=== PATIENT | female | born 1985 | race African-American/Black ===

== ENCOUNTER 2017-12-10 08:25 | Emergency (ER) | payer OTHER ==
[~2017-12-10] VITALS: Ht 167.6 cm; Wt 85.3 kg
[2017-12-10] MEDS ORDERED: SODIUM CHLORIDE 0.9% 1,000 ML IV ONE (08:36)
[2017-12-10] MEDS ORDERED: KETOROLAC TROMETH 30 MG/ML 1ML VIAL IV ONE (08:45)
[2017-12-10 08:49] VITALS: BP 133/65
[2017-12-10 09:08] LABS: Eosinophils # (auto) 0 uL; Hemoglobin 11.9 g/dL (12.2-16.2); Lymphocytes # (auto) 0.9 uL; Monocytes # (auto) 0.2 uL; Nucleated Red Blood Cells % 0.2 %
[2017-12-10 09:10] LABS: Basophils # (auto) 0.1 uL; Eosinophils % (auto) 0.3 % (0.0-7.0); Hematocrit 37.6 % (36.0-46.0); Lymphocytes % (auto) 12.6 % (10.0-50.0); Mean Corpuscular Hemoglobin 24.1 pg (28.0-32.0); Mean Corpuscular Hgb Conc. 31.6 g/dL (32.0-36.0); Mean Corpuscular Volume 76.2 fL (80.0-100.0); Monocytes % (auto) 3.1 % (0.0-12.0); Neutrophils # (auto) 5.8 uL; Platelet Count (auto) 355 10^3/uL (140-450); Red Blood Cells 4.93 10^6/uL (4.0-5.20)
[2017-12-10] MEDS ORDERED: ONDANSETRON HCL 4 MG/2 ML VIAL IV ONE (09:15)
[2017-12-10 09:30] LABS: Albumin 4.1 g/dL (3.4-5.0); BUN/Creatinine Ratio 8.6; Bilirubin, Total 0.5 mg/dL (0.2-1.0); Calcium 9.4 mg/dL (8.5-10.1); Potassium 3.4 mmol/L (3.5-5.1)
[2017-12-10] MEDS ORDERED: PROMETHAZINE HCL 25 MG/ML 1ML IV ONE (09:30)
[2017-12-10 09:57] LABS: Alcohol, Urine < 3.0 mg/dL (0-5); Amphetamine Screen, Urine NEGATIVE (NEGATIVE); Barbiturate Scree,Urine NEGATIVE (NEGATIVE); Benzodiazephine Screen, Urine NEGATIVE (NEGATIVE); Cannabinoid Screen, Urine POSITIVE (NEGATIVE); Cocaine Screen, Urine NEGATIVE (NEGATIVE); Opiate Scree,Urine NEGATIVE (NEGATIVE); Phencyclidine Screen, Urine NEGATIVE (NEGATIVE)
[2017-12-10 09:59] LABS: Urine Specific Gravity 1.026 (1.001-1.035)
[2017-12-10 10:00] LABS: Urine Blood Normal /uL (Negative)
[2017-12-10] MEDS ORDERED: PANTOPRAZOLE 40 MG/10 ML VIAL IV ONE (10:00)
[2017-12-10 10:14] LABS: Urine WBC 1 /hpf (0 - 5)
[2017-12-10 10:15] LABS: Urine Bacteria FEW /hpf (None Seen); Urine Mucus MOD (None Seen)
== END 2017-12-10 11:26 | disposition home or self-care (01) ==
LOC: ER 08:25
DX: K29.70 Gastritis, unspecified, without bleeding (principal); F12.10 Cannabis abuse, uncomplicated
CPT/HCPCS: 36415; 80053; 80307; 81001; 82150; 83690; 85025; 96361; 96374; 96375; 99284; C9113; J1885; J2550; J7030

== ENCOUNTER 2017-12-13 03:45 | Emergency (ER) | payer OTHER ==
[~2017-12-13] VITALS: Ht 167.6 cm; Wt 90.7 kg
[2017-12-13 04:29] LABS: Basophils # (auto) 0 uL; Hemoglobin 11.6 g/dL (12.2-16.2); Monocytes # (auto) 0.5 uL; Neutrophils # (auto) 5.5 uL
[2017-12-13] MEDS ORDERED: SODIUM CHLORIDE 0.9% 1,000 ML IV ONE ×2 (04:30→11:30)
[2017-12-13] MEDS ORDERED: NALBUPHINE HCL 10 MG/1ml INJECTION IV ONE (04:30)
[2017-12-13] MEDS ORDERED: PROMETHAZINE HCL 25 MG/ML 1ML IV ONE (04:30)
[2017-12-13 04:33] LABS: Basophils % (auto) 0.4 % (0.0-2.0); Eosinophils # (auto) 0.2 uL; Lymphocytes % (auto) 24.5 % (10.0-50.0); Monocytes % (auto) 5.9 % (0.0-12.0); Neutrophils % (auto) 67.2 % (37.0-80.0); Nucleated Red Blood Cells % 0.2 %; White Blood Cell 8.2 10^3/uL (4.4-10.8)
[2017-12-13 04:34] LABS: Hematocrit 36.9 % (36.0-46.0); Mean Corpuscular Hgb Conc. 31.4 g/dL (32.0-36.0); Mean Corpuscular Volume 76.5 fL (80.0-100.0); Platelet Count (auto) 334 10^3/uL (140-450); Red Blood Cells 4.82 10^6/uL (4.0-5.20); Red Cell Distribution Width 16.6 % (11.8-14.3)
[2017-12-13 04:58] LABS: Albumin 3.8 g/dL (3.4-5.0); Bilirubin, Total 0.3 mg/dL (0.2-1.0); Calcium 8.8 mg/dL (8.5-10.1); Total Protein 7.1 g/dL (6.4-8.2)
[2017-12-13 05:04] LABS: Potassium 2.7 mmol/L (3.5-5.1)
[2017-12-13 05:45] LABS: Urine Bacteria FEW /hpf (None Seen); Urine Blood Negative /uL (Negative); Urine Mucus FEW (None Seen); Urine Specific Gravity 1.009 (1.001-1.035); Urine WBC 4 /hpf (0 - 5)
[2017-12-13] MEDS ORDERED: ONDANSETRON HCL 4 MG/2 ML VIAL IV ONE (07:00)
[2017-12-13 11:05] VITALS: BP 144/71
[2017-12-13] MEDS ORDERED: POTASSIUM CHL 10% (20 MEQ/15ML) 15ml ORAL SOLN PO ONE ×2 (11:15→11:30)
== END 2017-12-13 13:00 | disposition home or self-care (01) ==
LOC: EDBD 03:45 → ER 03:45
DX: N20.0 Calculus of kidney (principal); F12.10 Cannabis abuse, uncomplicated
CPT/HCPCS: 36415; 74176; 80053; 81001; 82150; 83690; 84702; 85025; 96361; 96374; 96375; 99285; J2300; J2550; J7030

== ENCOUNTER 2018-04-30 00:02 | Emergency (ER) | payer OTHER ==
[~2018-04-30] VITALS: Ht 167.6 cm; Wt 63.5 kg
[2018-04-30 00:35] LABS: Basophils # (auto) 0.1 uL; Eosinophils # (auto) 0 uL; Eosinophils % (auto) 0.6 % (0.0-7.0); Hemoglobin 10.8 g/dL (12.2-16.2); Lymphocytes # (auto) 1.2 uL; White Blood Cell 7.4 10^3/uL (4.4-10.8)
[2018-04-30 00:37] LABS: Basophils % (auto) 0.8 % (0.0-2.0); Hematocrit 34.6 % (36.0-46.0); Lymphocytes % (auto) 16.6 % (10.0-50.0); Mean Corpuscular Hemoglobin 23.6 pg (28.0-32.0); Mean Corpuscular Hgb Conc. 31.1 g/dL (32.0-36.0); Mean Corpuscular Volume 75.8 fL (80.0-100.0); Monocytes # (auto) 0.4 uL; Monocytes % (auto) 4.9 % (0.0-12.0); Neutrophils # (auto) 5.7 uL; Neutrophils % (auto) 77.1 % (37.0-80.0); Platelet Count (auto) 268 10^3/uL (140-450); Red Blood Cells 4.57 10^6/uL (4.0-5.20); Red Cell Distribution Width 17.2 % (11.8-14.3)
[2018-04-30 00:57] LABS: Albumin 3.6 g/dL (3.4-5.0); BUN/Creatinine Ratio 12.7; Calcium 8.3 mg/dL (8.5-10.1)
[2018-04-30 01:00] LABS: Bilirubin, Total 0.6 mg/dL (0.2-1.0); Total Protein 7.3 g/dL (6.4-8.2)
[2018-04-30] MEDS ORDERED: SODIUM CHLORIDE 0.9% 1,000 ML IV ONE ×2 (01:00→03:30)
[2018-04-30 02:36] LABS: Urine Bacteria FEW /hpf (None Seen); Urine Blood 3+ /uL (Negative); Urine Mucus FEW (None Seen); Urine WBC 9 /hpf (0 - 5)
[2018-04-30] MEDS ORDERED: ONDANSETRON HCL 4 MG/2 ML VIAL ONE (03:03)
[2018-04-30] MEDS ORDERED: HYDROmorphone HCL 2 MG/ML VL ONE (03:03)
[2018-04-30] MEDS ORDERED: HYDROmorphone HCL 2 MG/ML VL IV ONE ×2 (03:15→03:30)
[2018-04-30] MEDS ORDERED: ONDANSETRON HCL 4 MG/2 ML VIAL IV ONE (03:15)
[2018-04-30] MEDS ORDERED: PROMETHAZINE HCL 25 MG/ML 1ML IV ONE (03:30)
[2018-04-30 05:51] VITALS: BP 119/70
[2018-04-30] MEDS ORDERED: ONDANSETRON HCL 4 MG/2 ML VIAL IM ONE (06:15)
== END 2018-04-30 06:09 | disposition home or self-care (01) ==
LOC: EDBD 00:02 → ER 00:05
DX: K52.9 Noninfective gastroenteritis and colitis, unspecified (principal); N39.0 Urinary tract infection, site not specified; F17.210 Nicotine dependence, cigarettes, uncomplicated; F12.10 Cannabis abuse, uncomplicated
CPT/HCPCS: 36415; 74176; 80053; 81001; 82150; 83690; 85025; 96361; 96372; 96374; 96375; 99285; J1170; J2405

== ENCOUNTER 2018-06-03 02:42 | Emergency (ER) | payer OTHER ==
[~2018-06-03] VITALS: Ht 167.6 cm; Wt 81.6 kg
[2018-06-03] MEDS ORDERED: ONDANSETRON HCL 4 MG/2 ML VIAL IV ONE ×2 (03:00→07:45)
[2018-06-03] MEDS ORDERED: NALBUPHINE HCL 10 MG/1ml INJECTION IV ONE (03:00)
[2018-06-03] MEDS ORDERED: SODIUM CHLORIDE 0.9% 1,000 ML IV ONE (03:00)
[2018-06-03 03:33] LABS: Basophils # (auto) 0 uL; Eosinophils # (auto) 0.1 uL; Monocytes # (auto) 0.5 uL; Nucleated Red Blood Cells % 0.1 %; Red Cell Distribution Width 17.3 % (11.8-14.3); White Blood Cell 8.4 10^3/uL (4.4-10.8)
[2018-06-03 03:35] LABS: Basophils % (auto) 0.4 % (0.0-2.0); Eosinophils % (auto) 0.8 % (0.0-7.0); Hemoglobin 11.2 g/dL (12.2-16.2); Lymphocytes # (auto) 1.5 uL; Lymphocytes % (auto) 17.9 % (10.0-50.0); Mean Corpuscular Volume 74.1 fL (80.0-100.0); Monocytes % (auto) 6.3 % (0.0-12.0); Neutrophils # (auto) 6.3 uL; Neutrophils % (auto) 74.6 % (37.0-80.0); Platelet Count (auto) 322 10^3/uL (140-450); Red Blood Cells 4.86 10^6/uL (4.0-5.20)
[2018-06-03 03:53] LABS: Alanine Aminotransferase 15 U/L (13-56); Albumin 3.7 g/dL (3.4-5.0); Anion Gap 11 (5-15); Aspartate Aminotransferase 9 U/L (15-37); BUN/Creatinine Ratio 10.4; Blood Urea Nitrogen 8 mg/dL (7-18); Calcium 8.5 mg/dL (8.5-10.1); Carbon Dioxide 24 mmol/L (21-32); Chloride 104 mmol/L (98-107); GFR African American 112 mL/min; GFR Non-African American 92 mL/min; Glucose 107 mg/dL (74-106); Magnesium 1.9 mg/dL (1.6-2.6); Sodium 139 mmol/L (136-145)
[2018-06-03 03:58] LABS: Alkaline Phosphatase 86 U/L (45-117); Bilirubin, Total 0.6 mg/dL (0.2-1.0); Total Protein 7.3 g/dL (6.4-8.2)
[2018-06-03 04:34] LABS: Potassium 2.8 mmol/L (3.5-5.1)
[2018-06-03] MEDS ORDERED: POTASSIUM EFFERVESENT TAB 25 MEQ PO ONE (05:15)
[2018-06-03] MEDS ORDERED: POTASSIUM CHL 20MEQ/100ML 100 ML IV ONE (05:15)
[2018-06-03 08:17] VITALS: BP 118/77
== END 2018-06-03 08:49 | disposition home or self-care (01) ==
LOC: EDBD 02:42 → ER 02:42
DX: G43.A0 Cyclical vomiting, in migraine, not intractable (principal); F17.210 Nicotine dependence, cigarettes, uncomplicated; F12.10 Cannabis abuse, uncomplicated
CPT/HCPCS: 36415; 71045; 80053; 82150; 83690; 83735; 84484; 85025; 93005; 96361; 96374; 96375; 96376; 99285; J2300; J2405; J3480; J7030

== ENCOUNTER 2018-06-23 18:52 | Emergency (ER) | payer OTHER ==
[~2018-06-23] VITALS: Ht 172.7 cm; Wt 79.4 kg
[2018-06-23 19:38] LABS: Basophils # (auto) 0 uL; Eosinophils # (auto) 0.1 uL; Eosinophils % (auto) 0.9 % (0.0-7.0); Lymphocytes # (auto) 0.9 uL
[2018-06-23 19:41] LABS: Hemoglobin 10.7 g/dL (12.2-16.2); Lymphocytes % (auto) 13.2 % (10.0-50.0); Neutrophils # (auto) 5.2 uL; White Blood Cell 6.7 10^3/uL (4.4-10.8)
[2018-06-23 19:43] LABS: Basophils % (auto) 0.4 % (0.0-2.0); Hematocrit 34.6 % (36.0-46.0); Mean Corpuscular Hemoglobin 23.3 pg (28.0-32.0); Mean Corpuscular Volume 75.4 fL (80.0-100.0); Monocytes # (auto) 0.6 uL; Monocytes % (auto) 8.5 % (0.0-12.0); Platelet Count (auto) 261 10^3/uL (140-450); Red Blood Cells 4.59 10^6/uL (4.0-5.20); Red Cell Distribution Width 18.8 % (11.8-14.3)
[2018-06-23 19:57] LABS: Albumin 3.5 g/dL (3.4-5.0); BUN/Creatinine Ratio 7.6; Calcium 8.4 mg/dL (8.5-10.1)
[2018-06-23 20:14] LABS: Urine Bacteria FEW /hpf (None Seen); Urine Blood Negative /uL (Negative); Urine Mucus FEW (None Seen); Urine Specific Gravity 1.018 (1.001-1.035); Urine WBC 3 /hpf (0 - 5)
[2018-06-23] MEDS ORDERED: PROMETHAZINE HCL 25 MG/ML 1ML IV ONE (20:30)
[2018-06-23] MEDS ORDERED: ACETAMINOPHEN 500 MG TAB PO ONE (20:30)
[2018-06-23 20:38] LABS: Bilirubin, Total 0.4 mg/dL (0.2-1.0); Total Protein 7.1 g/dL (6.4-8.2)
[2018-06-23 20:41] LABS: Potassium 2.7 mmol/L (3.5-5.1)
[2018-06-23] MEDS ORDERED: POTASSIUM CHL 20 Meq TABLET PO ONE (21:00)
[2018-06-23] MEDS ORDERED: SODIUM CHLORIDE 0.9% 1,000 ML IV ONE (23:15)
[2018-06-23 23:30] VITALS: BP 126/82
== END 2018-06-24 00:23 | disposition home or self-care (01) ==
LOC: ER 18:52 → EDBD 18:52 → ER 23:45
DX: O99.611 Diseases of the digestive system complicating pregnancy, first trimester (principal); K52.9 Noninfective gastroenteritis and colitis, unspecified; E87.6 Hypokalemia; O99.331 Smoking (tobacco) complicating pregnancy, first trimester; F17.210 Nicotine dependence, cigarettes, uncomplicated; O99.321 Drug use complicating pregnancy, first trimester; F12.10 Cannabis abuse, uncomplicated; Z3A.01 Less than 8 weeks gestation of pregnancy
CPT/HCPCS: 36415; 80053; 81001; 82150; 83690; 84702; 85025; 96361; 96374; 99283; J2550

== ENCOUNTER 2019-03-04 10:03 | Emergency (ER) | payer OTHER ==
[~2019-03-04] VITALS: Ht 167.6 cm; Wt 72.6 kg
[2019-03-04 10:08] VITALS: BP 136/83
[2019-03-04] MEDS ORDERED: SODIUM CHLORIDE 0.9% 1,000 ML IV ONE ×2 (10:25)
[2019-03-04] MEDS ORDERED: MORPHINE SULFATE 4 MG/ML SYR/VIAL IV ONE (10:30)
[2019-03-04] MEDS ORDERED: PROMETHAZINE HCL 25 MG/ML 1ML IV ONE (10:30)
== END 2019-03-04 16:54 | disposition left against medical advice (07) ==
LOC: EDBD 10:03 → ER 10:03
DX: E86.0 Dehydration (principal)

== ENCOUNTER → 2019-12-12 | Emergency (ER) | payer MEDICAID, OTHER ==
[~2019-12-12] VITALS: Ht 167.6 cm; Wt 99.3 kg
[~2019-12-12] MED LIST: MORPHINE SULFATE 4 MG/ML SYR/VIAL IV ONE; PANTOPRAZOLE 40 MG/10 ML VIAL INJ IV STA; PROCHLORPERAZINE EDISYLATE 5 MG/ML 2ML VIAL IV ONE; SODIUM CHLORIDE 0.9% 1,000 ML IVB ONE
[2019-12-12 07:21] LABS: Basophils # (auto) 0 10 ^3/uL (0-0.2); Eosinophils # (auto) 0 10 ^3/uL (0-0.8); Lymphocytes # (auto) 0.6 10 ^3/uL (0.4-5.4)
[2019-12-12 07:25] LABS: Basophils % (auto) 0.8 % (0.0-2.0); Eosinophils % (auto) 0.3 % (0.0-7.0); Hematocrit 38.1 % (36.0-46.0); Hemoglobin 11.5 g/dL (12.2-16.2); Lymphocytes % (auto) 10.4 % (10.0-50.0); Mean Corpuscular Hemoglobin 22.4 pg (28.0-32.0); Mean Corpuscular Hgb Conc. 30.1 g/dL (32.0-36.0); Mean Corpuscular Volume 74.3 fL (80.0-100.0); Monocytes # (auto) 0.1 10 ^3/uL (0-1.3); Monocytes % (auto) 2.4 % (0.0-12.0); Neutrophils # (auto) 5.2 10 ^3/uL (1.6-8.6); Neutrophils % (auto) 86.1 % (37.0-80.0); Platelet Count (auto) 322 10^3/uL (140-450); Red Blood Cells 5.13 10^6/uL (4.0-5.20); Red Cell Distribution Width 16.4 % (11.8-14.3)
[2019-12-12 07:37] LABS: Albumin 3.6 g/dL (3.4-5.0); BUN/Creatinine Ratio 9.9; Calcium 8.5 mg/dL (8.5-10.1); Potassium 3.9 mmol/L (3.5-5.1)
[2019-12-12 07:39] LABS: Bilirubin, Total 0.3 mg/dL (0.2-1.0); Total Protein 7.7 g/dL (6.4-8.2)
[2019-12-12 08:37] VITALS: BP 123/74
== END | disposition home or self-care (01) ==
LOC: ER 06:51
DX: F12.188 Cannabis abuse with other cannabis-induced disorder (principal); R11.2 Nausea with vomiting, unspecified
CPT/HCPCS: 36415; 76705; 80053; 83690; 84702; 85025; 96361; 96374; 96375; 99284; C9113; J0780; J2270; J7030

== ENCOUNTER 2020-01-08 08:15 | Emergency (ER) | payer MEDICAID ==
[~2020-01-08] VITALS: Ht 167.6 cm; Wt 95.3 kg
[2020-01-08 08:30] VITALS: BP 143/86
[2020-01-08] MEDS ORDERED: SODIUM CHLORIDE 0.9% 1,000 ML IVB ONE (08:35)
[2020-01-08] MEDS ORDERED: SODIUM CHLORIDE 0.9% 1,000 ML IV ONE (08:35)
[2020-01-08] MEDS ORDERED: ONDANSETRON HCL 4 MG/2 ML VIAL IV ONE (08:45)
[2020-01-08] MEDS ORDERED: MORPHINE SULFATE 4 MG/ML SYR/VIAL IV ONE (08:45)
[2020-01-08 08:48] LABS: Basophils # (auto) 0 10 ^3/uL (0-0.2); Basophils % (auto) 0.5 % (0.0-2.0); Lymphocytes # (auto) 1.1 10 ^3/uL (0.4-5.4); Monocytes # (auto) 0.3 10 ^3/uL (0-1.3); Neutrophils # (auto) 3.3 10 ^3/uL (1.6-8.6); Nucleated Red Blood Cells % 0.1 %; White Blood Cell 4.9 10^3/uL (4.4-10.8)
[2020-01-08 08:50] LABS: Eosinophils # (auto) 0.1 10 ^3/uL (0-0.8); Hematocrit 36.1 % (36.0-46.0); Hemoglobin 11.1 g/dL (12.2-16.2); Lymphocytes % (auto) 23.5 % (10.0-50.0); Mean Corpuscular Hemoglobin 22.5 pg (28.0-32.0); Mean Corpuscular Hgb Conc. 30.6 g/dL (32.0-36.0); Mean Corpuscular Volume 73.5 fL (80.0-100.0); Monocytes % (auto) 6.2 % (0.0-12.0); Neutrophils % (auto) 66.8 % (37.0-80.0); Platelet Count (auto) 294 10^3/uL (140-450); Red Blood Cells 4.92 10^6/uL (4.0-5.20); Red Cell Distribution Width 17.1 % (11.8-14.3)
[2020-01-08 09:02] LABS: Albumin 3.5 g/dL (3.4-5.0); Calcium 8.2 mg/dL (8.5-10.1); Potassium 3.3 mmol/L (3.5-5.1)
[2020-01-08 09:04] LABS: Bilirubin, Total 0.4 mg/dL (0.2-1.0); Total Protein 7.4 g/dL (6.4-8.2)
[2020-01-08] MEDS ORDERED: PROCHLORPERAZINE EDISYLATE 5 MG/ML 2ML VIAL IV ONE (09:45)
[2020-01-08] MEDS ORDERED: KETOROLAC TROMETH 30 MG/ML 1ML VIAL IV ONE (09:45)
[2020-01-08] MEDS ORDERED: POTASSIUM EFFERVESENT TAB 25 MEQ PO ONE (10:30)
== END 2020-01-08 10:47 | disposition home or self-care (01) ==
LOC: ER 08:15
DX: E86.0 Dehydration (principal); F12.188 Cannabis abuse with other cannabis-induced disorder; R10.84 Generalized abdominal pain
CPT/HCPCS: 36415; 74176; 80053; 83690; 85025; 96361; 96374; 96375; 99284; J0780; J1885; J2270; J2405; J7030

== ENCOUNTER 2020-07-29 02:56 | Emergency (ER) | payer SELFPAY ==
[~2020-07-29] VITALS: Ht 167.6 cm; Wt 81.6 kg
[2020-07-29 02:58] VITALS: BP 136/71
[2020-07-29] MEDS ORDERED: LIDOCAINE VISCOUS 2% 15ML UD PO ONE (03:30)
[2020-07-29] MEDS ORDERED: ALUM & MAG HYDROX-SIMETH LIQ(MAALOX) 30 ML PO ONE (03:30)
[2020-07-29 04:33] LABS: Basophils # (auto) 0 10 ^3/uL (0-0.2); Basophils % (auto) 0.2 % (0.0-2.0); Eosinophils # (auto) 0 10 ^3/uL (0-0.8); Monocytes # (auto) 0.2 10 ^3/uL (0-1.3); Monocytes % (auto) 2.1 % (0.0-12.0)
[2020-07-29 04:35] LABS: Hematocrit 33.7 % (36.0-46.0); Hemoglobin 10.4 g/dL (12.2-16.2); Lymphocytes # (auto) 0.5 10 ^3/uL (0.4-5.4); Lymphocytes % (auto) 7.4 % (10.0-50.0); Mean Corpuscular Hemoglobin 22.7 pg (28.0-32.0); Mean Corpuscular Hgb Conc. 30.8 g/dL (32.0-36.0); Mean Corpuscular Volume 73.5 fL (80.0-100.0); Neutrophils # (auto) 6.6 10 ^3/uL (1.6-8.6); Neutrophils % (auto) 90.3 % (37.0-80.0); Platelet Count (auto) 299 10^3/uL (140-450); Red Blood Cells 4.59 10^6/uL (4.0-5.20); Red Cell Distribution Width 18.5 % (11.8-14.3); White Blood Cell 7.3 10^3/uL (4.4-10.8)
[2020-07-29] MEDS ORDERED: LORazepam 0.5 MG TAB PO ONE (04:45)
[2020-07-29 05:02] LABS: Albumin 3.8 g/dL (3.4-5.0); Calcium 8.6 mg/dL (8.5-10.1); Potassium 3.4 mmol/L (3.5-5.1)
[2020-07-29 05:06] LABS: BUN/Creatinine Ratio 10.2; Bilirubin, Total 0.4 mg/dL (0.2-1.0); Total Protein 7.8 g/dL (6.4-8.2)
[2020-07-29 05:07] LABS: Urine Bacteria FEW /hpf (None Seen); Urine Blood 3+ /uL (Negative); Urine Mucus FEW (None Seen); Urine Specific Gravity 1.025 (1.001-1.035); Urine WBC 5 /hpf (0 - 5)
[2020-07-29] MEDS ORDERED: PANTOPRAZOLE 40 MG/10 ML VIAL INJ IV STA (07:15)
[2020-07-29] MEDS ORDERED: PANTOPRAZOLE 40 MG/10 ML VIAL INJ IV ONE (07:15)
[2020-07-29] MEDS ORDERED: MORPHINE SULFATE 4 MG/ML SYR/VIAL IV ONE (07:15)
[2020-07-29] MEDS ORDERED: cefTRIAXone 1GM/50ML D5W 50 ML IV ONE (07:45)
== END 2020-07-29 11:26 | disposition home or self-care (01) ==
LOC: EDBD 02:56 → ER 03:04
DX: N39.0 Urinary tract infection, site not specified (principal); I10 Essential (primary) hypertension; Z88.1 Allergy status to other antibiotic agents
CPT/HCPCS: 36415; 74176; 76705; 80053; 81001; 82150; 83690; 84702; 85025

== ENCOUNTER 2022-03-15 04:22 | Emergency (ER) | payer MEDICAID, OTHER ==
[~2022-03-15] VITALS: Ht 167.6 cm; Wt 100.0 kg
[2022-03-15 04:31] VITALS: BP 134/74
== END 2022-03-15 05:08 | disposition left against medical advice (07) ==
LOC: EDUNIT# 04:22 → ER 04:22 → EDBD 04:22 → ER 05:08
DX: R10.13 Epigastric pain (principal); R11.2 Nausea with vomiting, unspecified; R19.7 Diarrhea, unspecified; Z53.21 Procedure and treatment not carried out due to patient leaving prior to being seen by health care provider